=== PATIENT | female | born 1960 | race Caucasian/White ===

== ENCOUNTER → 2017-06-13 | Outpatient (CLI) | payer OTHER ==
[~2017-06-13] MED LIST: ALPRAZOLAM0.5 MG PO; BUTALB-ACETAMI1 EACH PO; CALCIUM PO; DETROL LA4 MG PO; ESCITALOPRAM OX10 MG PO; GEODON40 MG PO; LINZESS PO; LIPITOR10 MG PO; MECLIZINE HCL25 MG PO; ZOLPIDEM TART12.5 MG PO
--- NOTE | 2017-06-21 18:12 | Diagnostic Imaging Report ---
#[id number] - MGSCRBIL #BILATERAL DIGITAL SCREENING MAMMOGRAM WITH CAD: 06/13/2017 Comparison is made to exams dated: 03/19/2016 mammogram, 04/09/2013 mammogram and 03/10/2013 mammogram - [facility]. Current study contains 5 films. The tissue of both breasts is heterogeneously dense. This may lower the sensitivity of mammography. Current study was also evaluated with a Computer Aided Detection (CAD) system. There are benign calcifications in both breasts. There also are benign vascular calcifications in the right breast. There is a mole marker on the right breast. No significant masses, calcifications, or other findings are seen in either breast. There has been no significant interval change. IMPRESSION: BENIGN There is no mammographic evidence of malignancy. A 1 year screening mammogram is recommended. The patient will be notified by letter of the results. Jose monk/birgit:06/20/2017 14:07:04 Sap Senior Developer: Angela WHITNEY(Shannan)(M), [facility] letter sent: Compared to Prior B9 Mammogram BI-RADS: 2 Benign
== END ==
LOC: MAMMO 12:34
PROVIDERS: ATTEND Family Medicine
DX: Z12.31 Encounter for screening mammogram for malignant neoplasm of breast (principal)
CPT/HCPCS: 77067

== ENCOUNTER → 2018-09-25 | Outpatient (CLI) | payer OTHER | LOC: MAMMO 11:52 | PROVIDERS: ATTEND Family Medicine | DX: Z12.31 Encounter for screening mammogram for malignant neoplasm of breast (principal) | CPT/HCPCS: 77067 ==